=== PATIENT | female | born 1990 | race Two or more races ===

== ENCOUNTER 2021-05-19 09:26 | Day surgery (SDC) | payer OTHER ==
[~2021-05-19] VITALS: Ht 165.1 cm; Wt 63.5 kg
[2021-05-19] MEDS ORDERED: PEPCID AC20 MG PO (09:35)
[2021-05-19] MEDS ORDERED: MIRALAX17 GM (09:35)
== END 2021-05-19 20:15 | disposition home or self-care (01) ==
LOC: ER 09:26
PROVIDERS: ATTEND Specialist
DX: O02.1 Missed abortion (principal); O26.891 Other specified pregnancy related conditions, first trimester; R10.2 Pelvic and perineal pain; Z3A.09 9 weeks gestation of pregnancy; Z20.822 Contact with and (suspected) exposure to COVID-19

== ENCOUNTER → 2022-05-26 | Emergency (ER) | payer OTHER ==
[~2022-05-26] VITALS: Ht 167.6 cm; Wt 68.0 kg
[~2022-05-26] MED LIST: MIRALAX17 GM; PEPCID AC20 MG PO
== END | disposition home or self-care (01) ==
LOC: ER 13:51
DX: O20.9 Hemorrhage in early pregnancy, unspecified (principal)

== ENCOUNTER 2022-08-03 14:14 | Emergency (ER) | payer OTHER ==
[~2022-08-03] VITALS: Ht 165.1 cm; Wt 68.0 kg
== END 2022-08-03 19:06 | disposition home or self-care (01) ==
LOC: ER 14:14
DX: O98.812 Other maternal infectious and parasitic diseases complicating pregnancy, second trimester (principal); Z3A.17 17 weeks gestation of pregnancy; B37.31 Acute candidiasis of vulva and vagina

== ENCOUNTER 2022-11-16 12:18 | Outpatient (CLI) | payer OTHER ==
[2022-11-16] MEDS ORDERED: PRENATABS RX T1 EACH PO (13:50)
== END 2022-11-16 18:55 | disposition home or self-care (01) ==
LOC: OBS/DEL 12:18
PROVIDERS: ATTEND Specialist
DX: O23.593 Infection of other part of genital tract in pregnancy, third trimester (principal); O23.33 Infections of other parts of urinary tract in pregnancy, third trimester; B96.89 Other specified bacterial agents as the cause of diseases classified elsewhere; N39.0 Urinary tract infection, site not specified; Z3A.32 32 weeks gestation of pregnancy

== ENCOUNTER 2022-12-26 10:44 | Inpatient (IN) | payer OTHER ==
[~2022-12-26] VITALS: Ht 165.1 cm; Wt 2.3 kg
[~2022-12-26 10:44] MED LIST changes: +PRENATABS RX T1 EACH PO
[2022-12-26] MEDS ORDERED: VALACYCLOVIR500 MG PO (10:49)
== END 2022-12-30 16:00 | disposition home or self-care (01) | DRG 788 ==
LOC: OBS/DEL 10:44 → OB/GYN 22:52 → LDR 22:52 → OBS/DEL 22:52 → OB/GYN 12-27 10:10
PROVIDERS: ADMIT Specialist; ATTEND Specialist
PROC: 4A1HXCZ Monitoring of Products of Conception, Cardiac Rate, External Approach (ICD-10-PCS; 2022-12-26)
PROC: 10D00Z1 Extraction of Products of Conception, Low, Open Approach (ICD-10-PCS; principal; 2022-12-27 07:30)
DX: O36.8130 Decreased fetal movements, third trimester, not applicable or unspecified (principal); O36.8330 Maternal care for abnormalities of the fetal heart rate or rhythm, third trimester, not applicable or unspecified; O99.824 Streptococcus B carrier state complicating childbirth; O36.5930 Maternal care for other known or suspected poor fetal growth, third trimester, not applicable or unspecified; Z3A.38 38 weeks gestation of pregnancy; Z37.0 Single live birth; Z20.822 Contact with and (suspected) exposure to COVID-19

== ENCOUNTER 2024-07-15 09:13 | Emergency (ER) | payer OTHER ==
[~2024-07-15] VITALS: Ht 165.1 cm; Wt 74.8 kg
[~2024-07-15 09:13] MED LIST changes: +VALACYCLOVIR500 MG PO
[2024-07-15 11:03] LABS: HEMATOCRIT 40.6 % (36.0-45.00); MEAN CELL VOLUME 93.9 fL (80.00-100.00); MEAN CORPUSCULAR HEMOGLOBIN 32.3 pg (27.00-32.0); MEAN CORPUSCULAR HGB CONC 34.4 g/dl (32.0-36.0); PLATELET COUNT 319 K/uL (150-450); RED BLOOD COUNT 4.33 M/uL (4.00-6.00); RED CELL DISTRIBUTION WIDTH 12.6 % (11.5-14.5)
[2024-07-15 11:17] LABS: CALCIUM 8.9 mg/dL (8.5-10.1); CREATININE SERUM 0.6 mg/dL (0.55-1.02); GFR 116.6; POTASSIUM 4.15 mEq/L (3.5-5.1)
[2024-07-15 11:23] LABS: INR 1.03; PARTIAL THROMBOPLASTIN TIME 35.7 SECONDS (22.0-34.0); PROTHROMBIN TIME 11.2 SECONDS (9.0-11.5)
[2024-07-15 11:33] LABS: URINE APPEARANCE Clear; URINE BILIRRUBIN Negative (NEGATIVE); URINE BLOOD Large; URINE COLOR Yellow; URINE GLUCOSE Negative (NEGATIVE); URINE KETONE Negative (NEGATIVE); URINE LEUKOCYTE Moderate; URINE NITRATE Negative; URINE PROTEIN Negative (NEGATIVE); URINE UROBILINOGEN 0.2 E.U./dl
[2024-07-15 11:36] LABS: URINE BACTERIA 870.2 uL (0.0-1933); URINE EPITHELIAL CELLS 14.7 uL (0.0-38.8); URINE RBC 42.1 uL (0.0-20.8); URINE WBC 188.7 uL (0.0-23.2)
== END 2024-07-15 13:10 | disposition home or self-care (01) ==
LOC: ER 09:16
PROVIDERS: General Practice
DX: O20.9 Hemorrhage in early pregnancy, unspecified (principal); O23.41 Unspecified infection of urinary tract in pregnancy, first trimester; N39.0 Urinary tract infection, site not specified; Z3A.00 Weeks of gestation of pregnancy not specified

== ENCOUNTER 2024-07-22 07:12 | Emergency (ER) | payer OTHER ==
[~2024-07-22] VITALS: Ht 165.1 cm; Wt 72.6 kg
[2024-07-22] MEDS ORDERED: PRENATAL MULTI1 EAC3 PO (07:16)
[2024-07-22 08:34] LABS: HEMATOCRIT 41.5 % (36.0-45.00); HEMOGLOBIN 14.5 g/dL (12.0-15.00); MEAN CELL VOLUME 92.4 fL (80.00-100.00); MEAN CORPUSCULAR HEMOGLOBIN 32.3 pg (27.00-32.0); PLATELET COUNT 320 K/uL (150-450); RED BLOOD COUNT 4.49 M/uL (4.00-6.00); RED CELL DISTRIBUTION WIDTH 12.8 % (11.5-14.5)
[2024-07-22 08:47] LABS: URINE APPEARANCE Clear; URINE BILIRRUBIN Negative (NEGATIVE); URINE BLOOD Large; URINE COLOR Yellow; URINE GLUCOSE Negative (NEGATIVE); URINE KETONE Negative (NEGATIVE); URINE LEUKOCYTE Negative; URINE NITRATE Negative; URINE PROTEIN Negative (NEGATIVE); URINE UROBILINOGEN 0.2 E.U./dl
[2024-07-22 08:58] LABS: URINE BACTERIA 286.3 uL (0.0-1933); URINE EPITHELIAL CELLS 14.5 uL (0.0-38.8); URINE RBC 81.4 uL (0.0-20.8); URINE WBC 3.4 uL (0.0-23.2)
[2024-07-22 09:03] LABS: PARTIAL THROMBOPLASTIN TIME 33.7 SECONDS (22.0-34.0); PROTHROMBIN TIME 10.9 SECONDS (9.0-11.5)
[2024-07-22 09:06] LABS: CREATININE SERUM 0.61 mg/dL (0.55-1.02); GFR 114.4; POTASSIUM 4.54 mEq/L (3.5-5.1)
== END 2024-07-22 11:49 | disposition home or self-care (01) ==
LOC: ER 07:15
PROVIDERS: General Practice
DX: O20.8 Other hemorrhage in early pregnancy (principal); Z3A.01 Less than 8 weeks gestation of pregnancy

== ENCOUNTER 2024-09-01 11:05 | Emergency (ER) | payer OTHER ==
[~2024-09-01] VITALS: Ht 165.1 cm; Wt 68.0 kg
[~2024-09-01 11:05] MED LIST changes: +PRENATAL MULTI1 EAC3 PO
[2024-09-01] MEDS ORDERED: KETOROLAC TROMETHAMINE 30 MG VIAL IV ONE (11:45)
[2024-09-01] MEDS ORDERED: FAMOtidine 10 MG/ML (4ML VIAL) IV ONE (11:45)
[2024-09-01] MEDS ORDERED: 0.9 % SODIUM CHLORIDE 1,000 ML IV ONE (11:45)
[2024-09-01 12:46] LABS: HEMATOCRIT 43.1 % (36.0-45.00); HEMOGLOBIN 14.8 g/dL (12.0-15.00); MEAN CELL VOLUME 93.1 fL (80.00-100.00); MEAN CORPUSCULAR HGB CONC 34.4 g/dl (32.0-36.0); PLATELET COUNT 354 K/uL (150-450); RED BLOOD COUNT 4.63 M/uL (4.00-6.00); RED CELL DISTRIBUTION WIDTH 12.9 % (11.5-14.5)
[2024-09-01 13:13] LABS: URINE APPEARANCE Clear; URINE BILIRRUBIN Negative (NEGATIVE); URINE BLOOD Large; URINE COLOR Yellow; URINE GLUCOSE Negative (NEGATIVE); URINE KETONE Negative (NEGATIVE); URINE LEUKOCYTE Trace; URINE NITRATE Negative; URINE PROTEIN Negative (NEGATIVE); URINE UROBILINOGEN 0.2 E.U./dl
[2024-09-01 13:13] LABS: INR 0.99; PARTIAL THROMBOPLASTIN TIME 31.4 SECONDS (22.0-34.0); PROTHROMBIN TIME 10.8 SECONDS (9.0-11.5)
[2024-09-01 13:14] LABS: URINE BACTERIA 714.7 uL (0.0-1933); URINE EPITHELIAL CELLS 23.7 uL (0.0-38.8); URINE RBC 146.7 uL (0.0-20.8); URINE WBC 6.6 uL (0.0-23.2)
[2024-09-01 13:19] LABS: ALKALINE PHOSPHATASE 59 U/L (50-136); ALT/SGPT 32 U/L (12-78); ANION GAP 8 (10.0-20.0); AST/SGOT 27 U/L (15-37); BILIRUBIN TOTAL 0.55 mg/dL (0.3-1.2); BLOOD UREA NITROGEN 9 mg/dL (7-18); BUN CREA RATIO 12 (7.0-25.0); CALCIUM 9.2 mg/dL (8.5-10.1); CARBON DIOXIDE 29 mEq/L (21-32); CHLORIDE 109 mmol/L (98-107); CREATININE SERUM 0.73 mg/dL (0.55-1.02); GFR 92.99; GLOBULINA 4.1 G/DL (2.4-3.5); GLUCOSE FASTING 95 mg/dL (65-100); OSMOLALITY SERUM 282 MOSM/KG (275-295); POTASSIUM 4.17 mEq/L (3.5-5.1); SODIUM 142 mmol/L (136-145); TOTAL PROTEIN 8.1 gm/dL (6.4-8.2)
[2024-09-01 13:20] LABS: HCG QUANTITATIVE < 1 mUI/mL (1-3)
[2024-09-01 13:36] LABS: URINE CAST 0.14 uL (0.0-1.40)
[2024-09-01] MEDS ORDERED: QUESTRAN LIGHT210 GM PO (15:00)
[2024-09-01] MEDS ORDERED: PROTONIX40 MG PO (15:00)
[2024-09-01] MEDS ORDERED: PROBIOTIC1 EAC2 PO (15:00)
[2024-09-01] MEDS ORDERED: CIPRO500 MG PO (15:00)
== END 2024-09-01 15:36 | disposition home or self-care (01) ==
LOC: ER 11:06
PROVIDERS: General Practice
DX: R19.7 Diarrhea, unspecified (principal)
CPT/HCPCS: 36415; 74177; Q9965